=== PATIENT | female | born 1995 ===

== ENCOUNTER 2018-06-04 08:21 | Inpatient (IN) | payer MEDICAID, SELFPAY ==
[2018-06-04] MEDS ORDERED: Oxytocin 30 UNIT 30 UNITS/500 ML BAG IV ONE ×2 (09:11→09:18)
[2018-06-04] MEDS ORDERED: Lactated Ringer's 1,000 ML IV ONE (09:11)
[2018-06-04] MEDS ORDERED: Lactated Ringer's 1,000 ML IV SCH (09:15)
[2018-06-04] MEDS ORDERED: Lidocaine 1% 20 MG/2 ML PF AMP ONE (09:17)
[2018-06-04 09:40] LABS: BASO % 0.2 % (0.0-2.0); EOS % 0.2 % (0.0-4.0); HEMOGLOBIN 11.3 g/dL (12.0-16.0); LYMPH # 2.2 K/uL (1.0-4.3); LYMPH % 25.2 % (20.0-40.0); MEAN CELL VOLUME 84.4 fl (81.0-99.0); MEAN CORPUSCULAR HEMOGLOBIN 27.7 pg (27.0-31.0); MEAN CORPUSCULAR HGB CONC 32.9 g/dL (33.0-37.0); MEAN PLATELET VOLUME 9.2 fl (7.2-11.7); MONO # 0.5 K/uL (0.0-0.8); MONO % 5.5 % (0.0-10.0); NEUT # 6.1 K/uL (1.8-7.0); NEUT % 68.9 % (50.0-75.0); RBC 4.06 Mil/uL (3.80-5.20); RED CELL DISTRIBUTION WIDTH 21.5 % (11.5-14.5); WHITE BLOOD COUNT 8.9 K/uL (4.8-10.8)
--- NOTE | 2018-06-04 09:47 | OBHP ---
Datetime: 06/04/2018 09:36 IP Adm Impression: Term, intrauterine ; Active labor IP Admit Plan: Admit to unit; Initiate labor protocol Admit Comment, IP Provider: 23 year old at 37.3 weeks (confirmed via LMP 09/15/17) presents f or regular contractions every 3 minutes and leakage of clear fluid since 4 am (5 hours prior to prese ntation). She reports good movement and denies vaginal bleeding. She denies a big gush of fluid from vagina and reports that it has been minimal leakage since 4am. Her first was NVD at 3 9 weeks and she reports no complications; baby was 5lbs but had no complications. She denies headache , nausea, vomitting, change in vision, chest pain, shortness of breath, diarrhea or constipation. Boy friend/father of baby bedside. : [facility] - Dr Pisano PMH: denies OB Hx: x1 - 5 lb @ 39 wks, 05/29/18 NST WNL FHx: denies Social: denies tob, alcohol, illicit drugs Meds: denies Allergies: denies Labs: GBS neg, Blood type O+ (negative antibody), RPR neg, HIV neg, HBsAg neg, rubella immune, GC/ C neg, PPD quant gold neg (03/05), Tdap unknown ROS: negative as per HPI PE: uncomfortable, able to talk between cx CV: RRR Resp: no respiratory distress Extremities: no pitting edema Abdomen: no tenderness to palpation Pelvic: Dr Hernandez: /-1, no ferning seen on fluid collected Assessment: 23 year old at 37.3 weeks (confirmed via LMP 09/15/17) presents for regular con tractions every 3 minutes and leakage of clear fluid since 4 am (5 hours prior to presentation). Plan: -Admit for normal progression of labor -continuous EFM -Labs -IVF -Pain control PRN -Anticipate vaginal delivery/ if necessary Case seen with and discussed with Dr Hernandez. ---Hyun Sorenson, PGY1 [facility] Family Medicine OB Hospitalist Addendum: Pt seen and examined by me. Agree w/ above. 23 yo at 37+3 in [facility], VE: 7/BBOW/100/-1 at 9 am, admitted to L_D. GBS negative. FHT reassuring. (ES) Pelvic Type - PN: Adequate Extremities - PN: Normal Abdomen - PN: Normal Back - PN: Not Done Breast - PN: Not Done Lungs - PN: Normal Heart - PN: Normal Thyroid - PN: Not Done Neurologic - PN: Not Done HEENT - PN: Normal General - PN: Normal FHR - Baseline A Provider: 160 Membranes, Provider: Bulging Pool Provider: Negative Ferning Provider: Negative Vital Signs Provider: Reviewed; Within Normal Limits IP Indication for Induction: Not Applicable IP Chief Complaint: Uterine contractions; Suspected ruptured membranes; Maternal discomfort NICHD Variability Prov Fetus A: Moderate 6-25bpm NICHD Accel Fetus A IP Provider: 15X15 FHR Category Provider Fetus A: Category I NICHD Decel Fetus A IP Provider: None Dilatation, Provider: 7 Effacement, Provider: 100 Station, Provider: -1 Genitourinary Exam: Not Done DTRs - PN: Not Done
--- NOTE | 2018-06-04 09:50 | OBADHP ---
Datetime: 06/04/2018 09:36 Admit Comment, IP Provider: 23 year old at 37.3 weeks (confirmed via LMP 09/15/17) presents f or regular contractions every 3 minutes and leakage of clear fluid since 4 am (5 hours prior to prese ntation). She reports good movement and denies vaginal bleeding. She denies a big gush of fluid from vagina and reports that it has been minimal leakage since 4am. Her first was NVD at 3 9 weeks and she reports no complications; baby was 5lbs but had no complications. She denies headache , nausea, vomitting, change in vision, chest pain, shortness of breath, diarrhea or constipation. Boy friend/father of baby bedside. : [facility] - Dr Pisano PMH: denies OB Hx: x1 - 5 lb @ 39 wks, 05/29/18 NST WNL FHx: denies Social: denies tob, alcohol, illicit drugs Meds: denies Allergies: denies Labs: GBS neg, Blood type O+ (negative antibody), RPR neg, HIV neg, HBsAg neg, rubella immune, GC/ C neg, PPD quant gold neg (03/05), Tdap unknown ROS: negative as per HPI PE: uncomfortable, able to talk between cx CV: RRR Resp: no respiratory distress Extremities: no pitting edema Abdomen: no tenderness to palpation Pelvic: Dr Hernandez: /-1, no ferning seen on fluid collected Assessment: 23 year old at 37.3 weeks (confirmed via LMP 09/15/17) presents for regular con tractions every 3 minutes and leakage of clear fluid since 4 am (5 hours prior to presentation). Plan: -Admit for normal progression of labor -continuous EFM -Labs -IVF -Pain control PRN -Anticipate vaginal delivery/ if necessary Case seen with and discussed with Dr Hernandez. ---Hyun Sorenson, PGY1 [facility] Family Medicine OB Hospitalist Addendum: Pt seen and examined by me. Agree w/ above. 23 yo at 37+3 in [facility], VE: 7/BBOW/100/-1 at 9 am, admitted to L_D. GBS negative. FHT reassuring. (ES) Pelvic Type - PN: Adequate Extremities - PN: Normal Abdomen - PN: Normal Back - PN: Not Done Breast - PN: Not Done Lungs - PN: Normal Heart - PN: Normal Thyroid - PN: Not Done Neurologic - PN: Not Done HEENT - PN: Normal General - PN: Normal FHR - Baseline A Provider: 160 Membranes, Provider: Bulging Pool Provider: Negative Ferning Provider: Negative Vital Signs Provider: Reviewed; Within Normal Limits IP Chief Complaint: Uterine contractions; Suspected ruptured membranes; Maternal discomfort NICHD Variability Prov Fetus A: Moderate 6-25bpm NICHD Accel Fetus A IP Provider: 15X15 FHR Category Provider Fetus A: Category I NICHD Decel Fetus A IP Provider: None Dilatation, Provider: 7 Effacement, Provider: 100 Station, Provider: -1 Genitourinary Exam: Not Done DTRs - PN: Not Done IP Adm Impression: Term, intrauterine ; Active labor IP Admit Plan: Admit to unit; Initiate labor protocol
[2018-06-04] MEDS ORDERED: Benzocaine/Menthol SPRAY TOP PRN (11:49)
--- NOTE | 2018-06-04 12:20 | OBDS ---
DELIVERY PERSONNEL Delivery Doctor: Elizabeth Hernandez MD Actuarial Intern: Jovana Haji RN Resident: Dr. Pisano MATERNAL INFORMATION Delivery Anesthesia: Local Medications in Delivery: Pitocin 30units Estimated Blood Loss (ml): 150 Placenta Cultured: No Maternal Complications: None Provider Comments: Over intact perineum, of live female infant at 11:18 AM, Weight 2320 gm, 5#1 .8, 9/9 . Head OA delivered first followed with delivery of left anterior shoulder in a controll ed manner followed by posterior arm and body. was bulb suctioned nasopharygeally and crying sp ontaneously. Umbilical cord was cut. Skin to skin was done with mother. Placenta was delivered intact spontaneously. Perineum with 2nd degree laceration. Uterus firm and appropriately hemostatic followi ng delivery. Pt tolerated delivery well. No Complications. QBL 150 mL. Patient and baby remained stable. Case d/w Dr. Hernandez --- Manuel Pisano MD PGY-2 LABOR SUMMARY EDC: 06/22/2018 00:00 No. Babies in Womb: 2 Attempted: No Labor Anesthesia: None LABOR INFORMATION Reason for Induction: Not Applicable Onset of Labor: 06/04/2018 04:00 Oxytocin: N/A Group B Beta Strep: Negative (Annotations: 05/21/2018) Antibiotics # of Doses: n/a Antibiotics Time of Last Dose: n/a Steroids Given: None Reason Steroids Not Administered: Not Applicable MEMBRANES Membranes Rupture Method: Artificial Rupture of Membranes: 06/04/2018 10:45 Length of Rupture (hrs): 0.55 Amniotic Fluid Color: Clear Amniotic Fluid Amount: Small Amniotic Fluid Odor: Normal STAGES OF LABOR Stage 3 hrs: 0 Stage 3 min: 4 Total Time in Labor hrs: 7 Total Time in Labor min: 22 VAGINAL DELIVERY Episiotomy: None Laceration Extension: Second Degree Laceration Type: Perineal Laceration Repair: Yes Laceration Repair Note: 1% lidocaine injected into perieum and vagina. 2nd degree perineal lacerati on repaired with (1) 2.0 rapide and (1) 3.0 rapide; interrupted. Initial Vag Sponge Count: 10 sponges, 5 laps with ring Final Vag Sponge Count: 10 sponges, 5 laps with ring Initial Vag Sharps Count: 2 sutures, 1 needle. Final Vag Sharps Count: 2 sutures, 1 needle Sponge Count Correct: Yes Sharps Count Correct: Yes Count Comment: count correct and acknowledged by Dr. Pisano/Dr. Hernandez. BABY A INFORMATION Delivery Date/Time: 06/04/2018 11:18 Method of Delivery: Vaginal Born in Route : No : N/A Forceps: N/A Vacuum Extraction: N/A Shoulder Dystocia : No SHOULDER DYSTOCIA BABY A Delivery Date/Time: 06/04/2018 11:18 PRESENTATION/POSITION BABY A Presentation: Cephalic Cephalic Presentation: Vertex Breech Presentation: N/A PLACENTA INFORMATION BABY A Placenta Delivery Time : 06/04/2018 11:22 Placenta Method of Delivery: Spontaneous Placenta Status: Delivered SCORES BABY A Heart Rate 1 min: >100 bpm Resp Effort 1 min: Good Cry Reflex Irritability 1 min: Cough or Sneeze or Pulls Away Muscle Tone 1 min: Active Motion Color 1 min: Body Dewey, Extremities Blue Resuscitation Effort 1 min: Tactile Stimulation SCORE 1 MIN: 9 Heart Rate 5 min: >100 bpm Resp Effort 5 min: Good Cry Reflex Irritability 5 min: Cough or Sneeze or Pulls Away Muscle Tone 5 min: Active Motion Color 5 min: Body Dewey, Extremities Blue Resuscitation Effort 5 min: Tactile Stimulation SCORE 5 MIN: 9 INFORMATION BABY A Gestational Age at Delivery: 37.4 Gestational Status: Term Infant Outcome : Liveborn Condition : Stable Sex: Female IDENTIFICATION/MEDS BABY A ID Band Number: [id number] ID Band Location: Left Leg; Left Arm Vitamin K Given : Not Given Erythromycin Given: Not Given WEIGHT/LENGTH BABY A Infant Birthweight (gms): 2320 Weight (lb): 5 Infant Weight (oz): 2 CORD INFORMATION BABY A No. Cord Vessels: 3 Nuchal Cord : N/A Cord Blood Taken: Yes Suction: Mouth; Nose ASSESSMENT BABY A Complications: None Physical Findings at Delivery: Within Normal Limits Respirations: Appears Normal Channel Business Manager/ALS Called : No Infant Care By: mae chacko Transferred To: Remains with Mother
[2018-06-04] MEDS: Benzocaine/Menthol SPRAY TOP PRN (15:05)
[2018-06-05 06:33] LABS: BASO % 0.2 % (0.0-2.0); EOS % 0.4 % (0.0-4.0); HEMOGLOBIN 10.5 g/dL (12.0-16.0); LYMPH # 3.2 K/uL (1.0-4.3); LYMPH % 29.8 % (20.0-40.0); MEAN CORPUSCULAR HEMOGLOBIN 27.8 pg (27.0-31.0); MEAN CORPUSCULAR HGB CONC 32.7 g/dL (33.0-37.0); MEAN PLATELET VOLUME 9.4 fl (7.2-11.7); MONO # 0.7 K/uL (0.0-0.8); MONO % 6.6 % (0.0-10.0); NEUT # 6.8 K/uL (1.8-7.0); NRBC % 0.1 % (0.0-0.0); RBC 3.77 Mil/uL (3.80-5.20); RED CELL DISTRIBUTION WIDTH 21.9 % (11.5-14.5); WHITE BLOOD COUNT 10.8 K/uL (4.8-10.8)
--- NOTE | 2018-06-05 08:43 | OBPPN ---
Datetime: 06/05/2018 05:57 PP Pain Prov: Within normal limits PP Nausea Prov: Denies PP Flatus Prov: Yes PP BM Prov: No PP Breasts Prov: Not Done PP Heart Prov: Normal PP Lungs Prov: Normal PP Abdomen/Uterus Prov: Normal PP Lochia Prov: Normal PP Vulva/Perineum Prov: Normal PP CVA Tenderness Prov: Normal PP Extremities Prov: Normal PP C/S Incision Prov: Not Applicable PP Progress Prov: Normal PP Impression Prov: Normal progression PP Plan Prov: Continue present management PP Progress Note Prov: S: 23 yo female @ 37.3 wks- normal vaginal delivery on 06/04/18 being ev aluated on PPD1. Pt had no acute events overnight. Pain is tolerated with medication, she has no comp laints today. She was able ambulate and void freely. Pt states that she have passed gas, but denies BM. Lochia is equal to menses. She is and using formula. PT denies fever, chills, diar [place], nausea/vomiting, chest pain, dyspnea, and dizziness. O: VS: Stable, WNL GEN: NAD Cardio: S1S2, no murmurs or extra heart sound Lungs: clear air entry bilaterally, no wheezes, rhonchi or crackles. Abdomen: BS+, mildly tender, fundus at umbilicus, firm. EXT: No edema, calves non-tender NEURO/PSYCH: AAOx3, no grossly focal deficits, preserved affect and mood. H/H (post ): Pending Assessment/Plan: 23 yo female @ 37.3 wks- normal vaginal delivery on 06/04/18 being evaluated on PPD1. Pt remains afebrile, tolerating pain with medication. Tolerating diet. Anticipating dischar ge 06/06/18. Continue with current management. Encourage and ambulating Continue Ibuprofen 600mg q6 for mild-moderate pain. Keep monitoring lochia, fundus and vitals. Anticipate discharge 06/06/18. F/U Appointment with Dr. Pisano in [facility] 07/18/18 - @ 1:20 p.m. Mary Hoyt, PGY-1 Family Medicine OB Hospitalist on-call. On rounds, I saw this patient...agree with PGY1 note BREE BAL PP Procedures: None Vital Signs Provider PP: Reviewed; Within Normal Limits
[2018-06-06] MEDS: Benzocaine/Menthol SPRAY TOP PRN (08:18)
[2018-06-06] MEDS ORDERED: Prenatal Multivit/Folic Acid/Iron Tab PO SCH (09:00)
--- NOTE | 2018-06-06 09:56 | OBPPN ---
Datetime: 06/06/2018 08:15 PP Pain Prov: Within normal limits PP Nausea Prov: Denies PP Flatus Prov: Yes PP BM Prov: Yes PP Breasts Prov: Not Done PP Heart Prov: Normal PP Lungs Prov: Normal PP Abdomen/Uterus Prov: Normal PP Lochia Prov: Normal PP Vulva/Perineum Prov: Not Done PP CVA Tenderness Prov: Normal PP Extremities Prov: Normal PP C/S Incision Prov: Not Applicable PP Progress Prov: Normal PP Impression Prov: Normal progression PP Plan Prov: Discharge PP Progress Note Prov: S: 23 yo s/p NVD on 06/04/2018 at 11:18. Pt. is seen and examined at bed side this AM. No significant overnight events. Pt reports occasional abdominal pain, but well control led with pain meds. Pt is ambulating without any difficulties. Breast feeding baby. Tolerating PO t. Lochia is similar to light menses in volume. Voiding freely, with bowel movement, and passing gas per rectum. Denies fever, chills, diarrhea, nausea, vomiting, chest pain, dyspnea, and dizziness. O: VS: stable GEN: NAD Cardio: S1S2, no M/G/R Resp: clear breath sounds b/l Abdomen: BS+, NT, Uterus is firm and at the level of the umbilicus. EXT: No edema, calves nontender NEURO/PSYCHI: AAOx3, no grossly focal deficit, preserved affect and mood. Assessment/Plan: 23 yo s/p NVD on 06/04/2018 at 11:18. Pt remains afebrile, tolerating pain w ith medication, tolerating PO intake, doing well on PPD2. OOB with caution Pt ambulating Ibuprofen 600mg for pain. Encourage and ambulating F/u CBC post-delivery: 10.5/32.0 Anticipated d/c to home, 06/06/2018. Case dw OB attending --- Manuel Pisano MD PGY-2 Patient see and examined by me this am. Agree with above note. --Dr. Ervin IP PP Procedures: None Vital Signs Provider PP: Reviewed; Within Normal Limits
[2018-06-06 15:09] VITALS: BP 104/65; PULSE 71; RESP 18; TEMP 98.7; O2SAT 100
== END 2018-06-06 10:40 | disposition home or self-care (01) | DRG 373 ==
LOC: H.EROB2 08:21 → H.L&D 09:11 → H.OB/GYN 13:30
PROVIDERS: ADMIT Obstetrics & Gynecology; ATTEND Obstetrics & Gynecology
PROC: 10E0XZZ Delivery of Products of Conception, External Approach (ICD-10-PCS; principal; 2018-06-04)
PROC: 0KQM0ZZ Repair Perineum Muscle, Open Approach (ICD-10-PCS; 2018-06-04)
PROC: 10907ZC Drainage of Amniotic Fluid, Therapeutic from Products of Conception, Via Natural or Artificial Opening (ICD-10-PCS; 2018-06-04)
DX: O70.1 Second degree perineal laceration during delivery (principal); Z37.0 Single live birth; Z3A.37 37 weeks gestation of pregnancy